=== PATIENT | male | born 1965 | race Caucasian/White ===

== ENCOUNTER 2022-09-12 16:37 | Outpatient (CLI) | payer MEDICARE, OTHER, SELFPAY | END 2022-09-12 16:38 | disposition home or self-care (01) | LOC: AMB 09-20 16:18 | PROVIDERS: Visit Provider Family Medicine | DX: I21.3 ST elevation (STEMI) myocardial infarction of unspecified site (principal) | CPT/HCPCS: A0425; A0434 ==